=== PATIENT | male | born 2000 | race Hispanic/Latino ===

== ENCOUNTER 2024-09-30 12:45 | Emergency (ER) | payer BC ==
[~2024-09-30] VITALS: Ht 177.8 cm; Wt 125.2 kg
[2024-09-30 12:55] VITALS: PULSE 72; RESP 20; TEMP 97.5
[2024-09-30 14:34] VITALS: BP 141/82; PULSE 65; RESP 16; TEMP 97.5; O2SAT 99
== END 2024-09-30 14:38 | disposition home or self-care (01) ==
LOC: FSED 12:49
DX: M25.562 Pain in left knee (principal); S83.8X2A Sprain of other specified parts of left knee, initial encounter; X50.1XXA Overexertion from prolonged static or awkward postures, initial encounter; Y93.01 Activity, walking, marching and hiking; Y92.89 Other specified places as the place of occurrence of the external cause
CPT/HCPCS: 99284